=== PATIENT | female | born 1985 | race Caucasian/White ===

== ENCOUNTER 2016-10-20 07:22 | Outpatient (RCR) | payer OTHER | END 2016-10-20 11:30 | disposition home or self-care (01) | LOC: WSPT 07:22 | DX: Z01.818 Encounter for other preprocedural examination (principal); M25.811 Other specified joint disorders, right shoulder ==

== ENCOUNTER 2016-12-15 15:45 | Outpatient (RCR) | payer OTHER | END 2016-12-30 12:51 | disposition home or self-care (01) | LOC: WSPT 15:45 | DX: Z47.89 Encounter for other orthopedic aftercare (principal); M75.81 Other shoulder lesions, right shoulder | CPT/HCPCS: G0283-GP ==

== ENCOUNTER → 2017-04-29 | Outpatient (REF) | LOC: WSOH 10:55 | DX: Z00.00 Encounter for general adult medical examination without abnormal findings (principal) ==

== ENCOUNTER 2018-01-09 18:32 | Emergency (ER) | payer BC ==
[~2018-01-09] VITALS: Ht 170.2 cm; Wt 78.2 kg
[2018-01-09 18:35] VITALS: BP 147/70; PULSE 91; TEMP 97.8
[2018-01-09] MEDS ORDERED: NORCO 325 MG-51 TAB PO (19:41)
== END 2018-01-09 19:50 | disposition home or self-care (01) ==
LOC: COL.ER 18:32
DX: S93.402A Sprain of unspecified ligament of left ankle, initial encounter (principal); X50.0XXA Overexertion from strenuous movement or load, initial encounter